=== PATIENT | male | born 1990 | race Two or more races ===

== ENCOUNTER 2025-04-25 11:34 | Emergency (ER) | payer OTHER ==
[~2025-04-25] VITALS: Ht 152.4 cm; Wt 81.6 kg
[2025-04-25 12:22] LABS: BASO % 0.9 % (0.1-1.2); EOS # 0.03 (0.04-0.54); EOS % 0.3 % (0.7-7.0); LYMPH # 0.82 (1.18-3.74); LYMPH % 9.2 % (19.3-53.1); MEAN PLATELET VOLUME 8.90 fl (9.4-12.4); MONO # 0.72 (0.24-0.82); MONO % 8.1 % (4.7-12.5); NEUT # 7.14 (1.56-6.13); NEUT % 79.8 % (34.0-71.1); RED CELL DISTRIBUTION WIDTH 13.8 % (11.6-14.4)
[2025-04-25 12:56] LABS: COVID-19 AG NEGATIVE (NEGATIVE)
[2025-04-25 12:59] LABS: INR 0.97
[2025-04-25 13:32] LABS: ALT/SGPT 48.0 U/L (12-78); AST/SGOT 30.0 U/L (15-37); BILIRUBIN TOTAL 0.48 mg/dL (0.3-1.2); BUN CREA RATIO 13.0 (7.0-25.0); CREATININE SERUM 0.95 mg/dL (0.70-1.30); GFR 91.3; GLOBULINA 3.7 G/DL (2.4-3.5); GLUCOSE FASTING 104.0 mg/dL (65-100); OSMOLALITY SERUM 279.0 MOSM/KG (275-295); PHOSPHOKINASE CREATININE 170.0 U/L (39-308)
[2025-04-25 16:15] LABS: URINE APPEARANCE Clear; URINE BACTERIA 6.8 uL (0.0-1933); URINE BILIRRUBIN Negative (NEGATIVE); URINE BLOOD Negative; URINE COLOR Yellow; URINE GLUCOSE Negative (NEGATIVE); URINE KETONE Negative (NEGATIVE); URINE LEUKOCYTE Negative; URINE NITRATE Negative; URINE PROTEIN Negative (NEGATIVE); URINE RBC 2.4 uL (0.0-20.8); URINE UROBILINOGEN 0.2 E.U./dl
[2025-04-25 16:26] LABS: URINE CAST 0.00 uL (0.0-1.40); URINE EPITHELIAL CELLS 0.4 uL (0.0-38.8); URINE WBC 0.9 uL (0.0-23.2)
[2025-04-25 16:27] LABS: COCAINE NEGATIVE (NEGATIVE); METHADONE NEGATIVE (NEGATIVE); OPIATES NEGATIVE (NEGATIVE); THC ( Cannabinoids) NEGATIVE (NEGATIVE)
[2025-04-25] MEDS ORDERED: KETOROLAC TROMETHAMINE 15 MG VIAL IV ONE (18:45)
[2025-04-25] MEDS ORDERED: KETOROLAC TROMETHAMINE 30 MG VIAL ONE (19:12)
== END 2025-04-25 19:38 | disposition home or self-care (01) ==
LOC: ER 11:34
PROVIDERS: General Practice
DX: G40.89 Other seizures (principal); E03.8 Other specified hypothyroidism; Z20.822 Contact with and (suspected) exposure to COVID-19; Z91.018 Allergy to other foods
CPT/HCPCS: 36415; 70450; 96365; 99284; J1885; J3490